=== PATIENT | female | born 1990 ===

== ENCOUNTER 2019-02-07 05:03 | Inpatient (IN) ==
[2019-02-07] MEDS ORDERED: BUTORPHANOL 2 MG/ML VIAL IV PRN (05:13)
[2019-02-07] MEDS ORDERED: ONDANSETRON 4 MG/2 ML VIAL IV PRN (05:13)
[2019-02-07] MEDS ORDERED: MEPERIDINE 50 MG/1 ML VIAL IV PRN (05:13)
[2019-02-07] MEDS ORDERED: OXYTOCIN/LR 20 UNIT/1,000 ML BAG IV SCH (05:30)
[2019-02-07 05:45] LABS: Basophils % 0.2 % (0.0-0.8); Eosinophils # 0.1 10*3/uL (0.0-0.87); Eosinophils % 0.9 % (0.00-10.9); Hematocrit 37.2 VOL% (35.7-47.0); Hemoglobin 11.5 GM/DL (12.0-16.0); Immature Granulocytes % 0.5 %; Immature Granulocytes Absolute 0.04 #; Lymphocytes # 1.7 10*3/uL (1.4-4.0); Mean Corpuscular HGB Conc 30.9 GM/DL (32-36); Mean Corpuscular Volume 82.3 FL (87-102); Mean Platelet Volume 12.1 FL (9.6-12.0); Monocytes % 8.3 % (1.7-12.7); Neutrophils % 71.1 % (38.7-73.9); Platelet Count 239 T/CUMM (130-400); Red Blood Count 4.52 MC/CUMM (3.8-5.5); Red Cell Distribution Width 15.5 % (9.3-17.3); White Blood Count 8.8 T/CUMM (4-12)
[2019-02-07] MEDS: LACTATED RINGERS 1,000 ML IV SCH ×2 (05:46→18:08)
[2019-02-07 06:11] LABS: Alanine Aminotransferase 24 U/L (13-56); Albumin 2.6 G/DL (3.4-5.0); Alkaline Phosphatase 126 U/L (45-117); Aspartate Amino Transferase 15 U/L (0-37); Bilirubin,Total < 0.39 MG/DL (0.2-1.0); Blood Urea Nitrogen 11 MG/DL (7-18); Calcium 9.3 MG/DL (8.5-10.1); Glucose 105 MG/DL (74-106); Osmolality,Calculated 273.7 MOS/KG (273-304); Total Protein 7.1 G/DL (6.4-8.3)
[2019-02-07 06:57] LABS: HIV Antigen/Antibody Result Nonreactive (Nonreactive); Hepatitis B Surface Ag Quant 0.46 Index; Hepatitis B Surface Ag Result Negative (Negative); Rubella Antibody IgG 59.9 IU/ML
[2019-02-07] MEDS ORDERED: ePHEDrine 50 MG/ML AMP IV PRN (12:45)
[2019-02-07] MEDS ORDERED: CITRIC ACID/SODIUM CITRATE 30 ML UDCUP PO ONE (12:45)
[2019-02-07] MEDS ORDERED: FAMOTIDINE 20 MG/2 ML VIAL IV ONE (12:45)
[2019-02-07] MEDS ORDERED: LACTATED RINGERS 1,000 ML IV ONE (12:45)
[2019-02-07] MEDS ORDERED: fentaNYL 2 MCG/ROPIV 0.2% EPID 100 ML EPIDURAL SCH (13:00)
[2019-02-07 15:15] LABS: Apearance,Urine CLEAR (Clear); Bilirubin,Urine Negative (Negative); Blood, Urine Negative (Negative); Glucose,Urine (UA) Negative (Negative); Ketones,Urine 5 mg/dL (Negative); Mucus,Urine Occasional /LPF (Occasional); Nitrite,Urine Negative (Negative); Protein,Urine Negative; RBC,Urine 1 /HPF (0-4); Squamous Epithelial Cell,Urine Occasional /HPF (0-10); Urine Color Yellow (Yellow); Urine Specific Gravity 1.019 (1.001-1.035); Urine Urobilinogen < 2.0 EU/DL (0.2-1.0); WBC,Urine <1 /HPF (0-6)
[2019-02-08] MEDS ORDERED: HYDROCORTISONE 2.5% RECTAL CREAM 30 GM TUBE TOP PRN (00:41)
[2019-02-08] MEDS ORDERED: DIPH/TET/ACEL PERT BOOSTER VACCINE 0.5 ML VIAL IM ONE (00:41)
[2019-02-08] MEDS ORDERED: ONDANSETRON 4 MG/2 ML VIAL IV PRN (00:41)
[2019-02-08] MEDS ORDERED: MEASLES/MUMPS/RUBELLA VACCINE 0.5 ML VIAL SUBCUT ONE (00:41)
[2019-02-08] MEDS ORDERED: WITCH HAZEL PADS 100/JAR TOP PRN (00:41)
[2019-02-08] MEDS ORDERED: ACETAMINOPHEN 325 MG TABLET PO PRN (00:41)
[2019-02-08] MEDS ORDERED: oxyCODONE/ACETAMINOPHEN 5-325 MG TABLET PO PRN ×2 (00:41)
[2019-02-08] MEDS ORDERED: LANOLIN 50% CREAM 0.3 OZ TUBE TOP PRN (00:41)
[2019-02-08] MEDS ORDERED: OXYTOCIN/LR 20 UNIT/1,000 ML BAG IV ONE (00:41)
[2019-02-08] MEDS ORDERED: BENZOCAINE 20%/MENTHOL 0.5% SPRAY 56 GM CAN TOP PRN (00:41)
[2019-02-08] MEDS ORDERED: RHO(D) IMMUNE GLOBULIN 300 MCG SYRINGE IM ONE (00:41)
[2019-02-08] MEDS ORDERED: BISACODYL 10 MG SUPP RECTAL PRN (00:41)
[2019-02-08] MEDS ORDERED: miSOPROStol 200 MCG TABLET ONE (00:51)
[2019-02-08] MEDS ORDERED: METHYLERGONOVINE 0.2 MG/1 ML AMP ONE (00:52)
[2019-02-08] MEDS ORDERED: METHYLERGONOVINE 0.2 MG/1 ML AMP IM ONE (01:05)
[2019-02-08] MEDS ORDERED: miSOPROStol 200 MCG TABLET RECTAL ONE (01:05)
[2019-02-08] MEDS: IBUPROFEN 800 MG TABLET PO PRN ×2 (01:25→13:27)
[2019-02-08 05:34] LABS: Basophils % 0.2 % (0.0-0.8); Eosinophils % 0.2 % (0.00-10.9); Hematocrit 31.8 VOL% (35.7-47.0); Immature Granulocytes % 0.7 %; Immature Granulocytes Absolute 0.09 #; Lymphocytes # 1.4 10*3/uL (1.4-4.0); Lymphocytes % 10.3 % (21.3-54.2); Mean Corpuscular HGB Conc 31.4 GM/DL (32-36); Mean Corpuscular Volume 80.9 FL (87-102); Monocytes % 5.4 % (1.7-12.7); Neutrophils % 83.2 % (38.7-73.9); Platelet Count 182 T/CUMM (130-400); Red Blood Count 3.93 MC/CUMM (3.8-5.5); Red Cell Distribution Width 15.4 % (9.3-17.3); White Blood Count 13.6 T/CUMM (4-12)
[2019-02-08] MEDS: DOCUSATE SODIUM 100 MG CAPSULE PO SCH ×2 (09:29→21:44)
[2019-02-09 08:28] LABS: Basophils % 0.2 % (0.0-0.8); Eosinophils # 0.2 10*3/uL (0.0-0.87); Eosinophils % 2.3 % (0.00-10.9); Hematocrit 28.1 VOL% (35.7-47.0); Hemoglobin 8.9 GM/DL (12.0-16.0); Immature Granulocytes % 0.7 %; Immature Granulocytes Absolute 0.07 #; Lymphocytes # 1.6 10*3/uL (1.4-4.0); Lymphocytes % 16.7 % (21.3-54.2); Mean Corpuscular HGB Conc 31.7 GM/DL (32-36); Mean Corpuscular Volume 81.9 FL (87-102); Mean Platelet Volume 11.5 FL (9.6-12.0); Monocytes % 6.2 % (1.7-12.7); Neutrophils % 73.9 % (38.7-73.9); Platelet Count 189 T/CUMM (130-400); Red Blood Count 3.43 MC/CUMM (3.8-5.5); Red Cell Distribution Width 15.7 % (9.3-17.3); White Blood Count 9.4 T/CUMM (4-12)
[2019-02-09] MEDS: DOCUSATE SODIUM 100 MG CAPSULE PO SCH (08:30)
[2019-02-09 11:45] VITALS: BP 127/61
== END 2019-02-09 16:45 | disposition home or self-care (01) | DRG 807 ==
LOC: N.LDOUT 05:03 → N.LD 05:05 → N.OB 02-08 02:36
PROVIDERS: ADMIT Obstetrics & Gynecology; ATTEND Obstetrics & Gynecology